=== PATIENT | female | born 2000 | race African-American/Black ===

== ENCOUNTER 2020-05-07 08:45 | Inpatient (IN) | payer OTHER ==
[2020-05-07] MEDS: DEXTROSE 5%-LACTATED RINGERS 1,000 ML IV SCH ×2 (10:00→17:30)
[2020-05-07 10:26] LABS: BASO % 0.8 % (0-2.0); HEMATOCRIT 40.2 % (32.4-45.2); HEMOGLOBIN 13.1 GM/dL (10.7-15.3); LYMPH % 15.9 % (8-40); MCH 30.2 pg (25.7-33.7); MCHC 32.5 g/dl (32.0-36.0); MEAN CELL VOLUME 92.9 fl (80-96); MEAN PLT VOLUME 7.6 fl (7.5-11.1); MONO % 7.6 % (3.8-10.2); NEUT % 74.7 % (42.8-82.8); PLATELET COUNT 362 K/MM3 (134-434); RBC 4.33 M/mm3 (3.60-5.2); RDW 13.3 % (11.6-15.6); WHITE BLOOD COUNT 9.1 K/mm3 (4.0-10.0)
[2020-05-07 10:31] LABS: INR 0.93 (0.83-1.09); PROTHROMBIN TIME (PATIENT) 11.5 SEC (9.7-13.0)
[2020-05-07 10:33] LABS: ACTIVATED PTT 31.1 SECONDS (25.2-36.5)
[2020-05-07] MEDS ORDERED: DINOPROSTONE 10 MG VAGINAL SUPPOSITORY VG ONE (10:45)
[2020-05-07 10:49] VITALS: BMI 43.3
[2020-05-07 11:00] LABS: POTASSIUM 4.6 mmol/L (3.5-5.1)
[2020-05-07 11:01] LABS: CALCIUM 9.7 mg/dL (8.5-10.1)
[2020-05-07 11:02] LABS: BLOOD UREA NITROGEN 9.2 mg/dL (7-18)
[2020-05-07 11:05] LABS: CREATININE 0.4 mg/dL (0.55-1.3)
[2020-05-07 11:28] LABS: SYPHILIS W/ RPR CONF NON-REACTIVE (NONREACTIVE)
[2020-05-07 11:57] LABS: HIV INTERPRETATION NEGATIVE (NEGATIVE)
[2020-05-07 12:15] LABS: ANISOCYTOSIS 0; MACROCYTOSIS 0; PLATELET ESTIMATE NORMAL
[2020-05-07] MEDS ORDERED: PROMETHAZINE HCL 25 MG/1 ML VIAL IVPB ONE (15:17)
[2020-05-07] MEDS ORDERED: BUTORPHANOL TARTRATE 1 MG/ML VIAL IVPB ONE (15:17)
[2020-05-08] MEDS ORDERED: AMPICILLIN - 2 GM in SODIUM CHLORIDE 100 ML IVPB ONE (02:30)
[2020-05-08] MEDS ORDERED: AMPICILLIN SODIUM 2 GM VIAL ONE (02:35)
[2020-05-08] MEDS ORDERED: SODIUM CHLORIDE 100 ML IVPB ONE ×3 (02:35→22:43)
[2020-05-08] MEDS ORDERED: OXYTOCIN 30 UNITS in 0.9% NS 30 UNIT/500 ML INFUS.BAG IVPB ONE (02:35)
[2020-05-08] MEDS: OXYTOCIN 30 UNITS in 0.9% NS 30 UNIT/500 ML INFUS.BAG IVPB SCH (02:38)
[2020-05-08] MEDS ORDERED: AMPICILLIN SODIUM 1 GM VIAL ONE ×4 (06:23→22:43)
[2020-05-08] MEDS: AMPICILLIN - 1 GM in SODIUM CHLORIDE 100 ML IVPB SCH ×5 (06:37→22:30)
[2020-05-08] MEDS ORDERED: IBUPROFEN 600 MG TABLET (FP) PO ONE (10:58)
[2020-05-08] MEDS ORDERED: PROMETHAZINE HCL 25 MG/1 ML VIAL ONE (15:06)
[2020-05-08] MEDS ORDERED: BUTORPHANOL TARTRATE 2 MG/ML VIAL ONE (15:06)
[2020-05-09] MEDS: DEXTROSE 5%-LACTATED RINGERS 1,000 ML IV SCH (02:30)
[2020-05-09] MEDS: AMPICILLIN - 1 GM in SODIUM CHLORIDE 100 ML IVPB SCH ×4 (02:30→16:30)
[2020-05-09] MEDS ORDERED: SODIUM CHLORIDE 100 ML IVPB ONE ×2 (02:32→06:36)
[2020-05-09] MEDS ORDERED: AMPICILLIN SODIUM 1 GM VIAL ONE ×4 (02:32→16:31)
[2020-05-09] MEDS ORDERED: BUTORPHANOL TARTRATE 2 MG/ML VIAL ONE (04:41)
[2020-05-09] MEDS ORDERED: PROMETHAZINE HCL 25 MG/1 ML VIAL ONE (04:41)
[2020-05-09] MEDS ORDERED: PROMETHAZINE HCL 25 MG/1 ML VIAL IVPUSH ONE (04:53)
[2020-05-09] MEDS ORDERED: BUTORPHANOL TARTRATE 1 MG/ML VIAL IVPUSH ONE (04:53)
[2020-05-09] MEDS: OXYTOCIN 30 UNITS in 0.9% NS 30 UNIT/500 ML INFUS.BAG IVPB SCH (08:20)
[2020-05-09] MEDS ORDERED: ELECTROLYTE-148 SOLN 1,000 ML IV SCH (09:15)
[2020-05-09] MEDS ORDERED: PCA PUMP NR ONE (11:50)
[2020-05-09] MEDS ORDERED: FENTANYL/BUPIVACAINE/NS/PF - PCEA - 50 ML DISP.SYRIN EP ONE ×2 (11:51→16:26)
[2020-05-09] MEDS ORDERED: BUPIVACAINE HCL/PF 0.25% (2.5MG/ML) 10 ML VIAL ONE (12:28)
[2020-05-09] MEDS: FENTANYL/BUPIVACAINE/NS/PF - PCEA - 50 ML DISP.SYRIN EP SCH (12:45)
[2020-05-09] MEDS ORDERED: NALOXONE HCL 0.4 MG/ML VIAL IVPUSH PRN (15:11)
[2020-05-09] MEDS ORDERED: OXYTOCIN 20 UNITS in 0.9% NS 20 UNIT/1,000 ML INFUS.BAG IV ONE (17:27)
[2020-05-09] MEDS ORDERED: CEFAZOLIN 2 GM/D5W 2 GM/50 ML ML IVPB ONE (17:27)
[2020-05-09] MEDS ORDERED: LIDO 2%/EPI 1:200000 PRESRVFRE (20 ML SDVIAL) ONE ×2 (17:29→17:51)
[2020-05-09] MEDS ORDERED: BENZOCAINE 28 GM HEMORRHOIDAL OINTMENT PR PRN (17:32)
[2020-05-09] MEDS ORDERED: diphenhydrAMINE HCL 25 MG CAPSULE (FP) PO PRN (17:32)
[2020-05-09] MEDS ORDERED: BENZOCAINE 20% 57 GM BOTTLE TP PRN (17:32)
[2020-05-09] MEDS ORDERED: IBUPROFEN 800 MG/8 ML IJ IVPB PRN (17:32)
[2020-05-09] MEDS ORDERED: WITCH HAZEL 50% (TUCKS) 40 PAD/JAR PAD TP PRN (17:32)
[2020-05-09] MEDS ORDERED: oxyCODONE HCL 5 MG TABLET PO PRN ×2 (17:32)
[2020-05-09] MEDS ORDERED: METHYLERGONOVINE MALEATE 0.2 MG/1 ML AMP IM PRN (17:32)
[2020-05-09] MEDS ORDERED: DEXTROSE 5%-LACTATED RINGERS 1,000 ML IV SCH (17:45)
[2020-05-09] MEDS ORDERED: OXYTOCIN 20 UNITS in 0.9% NS 20 UNIT/1,000 ML INFUS.BAG IV SCH (17:45)
[2020-05-09] MEDS ORDERED: KETOROLAC TROMETHAMINE 30 MG/1 ML VIAL ONE (18:01)
[2020-05-09] MEDS ORDERED: morphine SULFATE/PF 0.5 MG/ML (2cc Syringe - QUVA) ONE ×3 (18:07)
[2020-05-09 18:44] LABS: CORD BASE EXCESS -3.5 mmol/L (0-2); CORD HCO3 22.4 mmHg (20-29); CORD PCO2 43.4 mmHg (30-78); CORD pH 7.33 (7.14-7.44)
[2020-05-09] MEDS ORDERED: ONDANSETRON 4 MG/2 ML VIAL IVPUSH PRN (19:15)
[2020-05-10] MEDS: CEFAZOLIN 1 GM/D5W 1 GM/50 ML BAG IVPB SCH ×2 (00:05→01:16)
[2020-05-10] MEDS: AMPICILLIN - 1 GM in SODIUM CHLORIDE 100 ML IVPB SCH ×2 (00:06→06:13)
[2020-05-10] MEDS ORDERED: CEFAZOLIN 1 GM/D5W 1 GM/50 ML BAG IVPB ONE ×2 (07:00→10:00)
[2020-05-10 08:12] LABS: BASO % 0.2 % (0-2.0); EOS % 0.1 % (0-4.5); HEMATOCRIT 31.3 % (32.4-45.2); HEMOGLOBIN 10.5 GM/dL (10.7-15.3); LYMPH % 9.6 % (8-40); MCH 31.3 pg (25.7-33.7); MCHC 33.6 g/dl (32.0-36.0); MEAN CELL VOLUME 93.2 fl (80-96); MEAN PLT VOLUME 7.7 fl (7.5-11.1); MONO % 6.4 % (3.8-10.2); NEUT % 83.7 % (42.8-82.8); PLATELET COUNT 284 K/MM3 (134-434); RBC 3.36 M/mm3 (3.60-5.2); RDW 13.5 % (11.6-15.6); WHITE BLOOD COUNT 13.2 K/mm3 (4.0-10.0)
[2020-05-10] MEDS: ENOXAPARIN NA (PORCINE) 40 MG/0.4 ML DISP.SYRIN SQ SCH (14:25)
[2020-05-10] MEDS: SIMETHICONE 80 MG TAB.CHEW (FP) PO PRN ×2 (14:26→23:57)
[2020-05-10] MEDS: IBUPROFEN 600 MG TABLET (FP) PO PRN ×2 (14:26→23:57)
[2020-05-10] MEDS: ACETAMINOPHEN 325 MG TABLET (FP) PO PRN ×2 (14:28→23:57)
[2020-05-10] MEDS ORDERED: BISACODYL 10 MG SUPP.RECT PR PRN (17:32)
[2020-05-11] MEDS: IBUPROFEN 600 MG TABLET (FP) PO PRN ×2 (07:43→17:37)
[2020-05-11] MEDS: ACETAMINOPHEN 325 MG TABLET (FP) PO PRN ×2 (07:44→17:37)
[2020-05-11] MEDS: ENOXAPARIN NA (PORCINE) 40 MG/0.4 ML DISP.SYRIN SQ SCH (10:21)
[2020-05-11] MEDS: SIMETHICONE 80 MG TAB.CHEW (FP) PO PRN (17:37)
[2020-05-11] MEDS ORDERED: SENNOSIDES/DOCUSATE COMBO (SENNA PLUS) TABLET (UD) PO PRN (22:00)
[2020-05-12] MEDS: IBUPROFEN 600 MG TABLET (FP) PO PRN (02:48)
[2020-05-12] MEDS: ACETAMINOPHEN 325 MG TABLET (FP) PO PRN (02:48)
[2020-05-12] MEDS: SIMETHICONE 80 MG TAB.CHEW (FP) PO PRN (02:53)
[2020-05-12] MEDS: FENTANYL/BUPIVACAINE/NS/PF - PCEA - 50 ML DISP.SYRIN EP SCH ×2 (07:20→07:24)
[2020-05-12] MEDS: ENOXAPARIN NA (PORCINE) 40 MG/0.4 ML DISP.SYRIN SQ SCH (09:29)
[2020-05-12 09:37] LABS: BASO % 0.3 % (0-2.0); HEMATOCRIT 32.2 % (32.4-45.2); HEMOGLOBIN 10.8 GM/dL (10.7-15.3); LYMPH % 16.4 % (8-40); MCH 31.4 pg (25.7-33.7); MCHC 33.6 g/dl (32.0-36.0); MEAN CELL VOLUME 93.4 fl (80-96); MONO % 8.9 % (3.8-10.2); NEUT % 73.4 % (42.8-82.8); PLATELET COUNT 335 K/MM3 (134-434); RBC 3.45 M/mm3 (3.60-5.2); RDW 13.8 % (11.6-15.6); WHITE BLOOD COUNT 7.7 K/mm3 (4.0-10.0)
[2020-05-12 11:33] VITALS: BP 137/84; PULSE 76; TEMP 98.6
== END 2020-05-12 15:22 | disposition home or self-care (01) | DRG 540 ==
LOC: JLDR 08:45 → J3W 05-09 21:24
PROVIDERS: ADMIT Obstetrics & Gynecology; ATTEND Obstetrics & Gynecology
PROC: 3E0P7VZ Introduction of Hormone into Female Reproductive, Via Natural or Artificial Opening (ICD-10-PCS; principal; 2020-05-07)
PROC: 0U7C7ZZ Dilation of Cervix, Via Natural or Artificial Opening (ICD-10-PCS; 2020-05-09)
PROC: 10907ZC Drainage of Amniotic Fluid, Therapeutic from Products of Conception, Via Natural or Artificial Opening (ICD-10-PCS; 2020-05-09)
PROC: 10D00Z1 Extraction of Products of Conception, Low, Open Approach (ICD-10-PCS; 2020-05-09)
DX: O36.5930 Maternal care for other known or suspected poor fetal growth, third trimester, not applicable or unspecified (principal); O76 Abnormality in fetal heart rate and rhythm complicating labor and delivery; O69.81X0 Labor and delivery complicated by cord around neck, without compression, not applicable or unspecified; Z3A.37 37 weeks gestation of pregnancy; Z37.0 Single live birth; Z91.013 Allergy to seafood
CPT/HCPCS: 36415; 36600; 80048; 82803; 85025; 85610; 85730; 86780; 86850; 86900; 86901; 87389; 88307-TC